=== PATIENT | male | born 1980 | race Caucasian/White ===

== ENCOUNTER 2016-08-03 08:58 | Emergency (ER) | payer BC ==
--- NOTE | 2016-08-03 09:54 | UC ---
Lower Extremity/Ankle HPI - HPI Summary HPI Summary: PAIN LEFT BIG TOE X 2 DAYS THE TOE IS RED, SWOLLEN AND VERY PAINFUL NO KNOWN INJURY HAS BEEN EATING ONE CAN OF TUNA DAILY FOR THE PAST FEW WEEKS - History of Current Complaint Chief Complaint: UCLowerExtremity Stated Complaint: POSSIBLE GOUT Time Seen by Provider: 08/03/16 09:43 Hx Obtained From: Patient Onset/Duration: Gradual Onset, Lasting Days - 2, Still Present Severity Initially: Severe Severity Currently: Severe Aggravating Factor(s): Standing, Ambulation Alleviating Factor(s): Rest, Elevation, Ice Able to Bear Weight: Yes - Risk Factors Gout Risk Factors: Male - Allergies/Home Medications Allergies/Adverse Reactions: Allergies Allergy/AdvReac Type Severity Reaction Status Date / Time No Known Allergies Allergy Verified 08/03/16 09:41 PMH/Surg Hx/FS Hx/Imm Hx Endocrine History Of: Denies: Diabetes, Thyroid Disease Cardiovascular History Of: Denies: Cardiac Disorders, Hypertension Respiratory History Of: Denies: COPD, Asthma GI/ History Of: Denies: Ulcer - Surgical History Surgical History: Yes Surgery Procedure, Year, and Place: 2011: compound fracture of Left leg- surgury to repair. - Family History Known Family History: Positive: None Negative: Diabetes - Social History Alcohol Use: Occasionally Substance Use Type: None Smoking Status (MU): Never Smoked Tobacco Type: Smokeless Tobacco Amount Used/How Often: 1 can per day Length of Time of Smoking/Using Tobacco: 16 yrs Review of Systems Constitutional: Negative Skin: Negative Eyes: Negative ENT: Negative Respiratory: Negative Cardiovascular: Negative All Other Systems Reviewed And Are Negative: Yes Physical Exam Triage Information Reviewed: Yes Appearance: Well-Appearing, No Pain Distress, Well-Nourished Vital Signs: Initial Vital Signs Temp 99.2 F 08/03/16 09:38 Pulse 90 08/03/16 09:38 Resp 16 08/03/16 09:38 BP 111/74 08/03/16 09:38 Pulse Ox 100 08/03/16 09:38 Vital Signs Reviewed: Yes Eyes: Positive: Conjunctiva Clear ENT: Positive: Normal ENT inspection, Hearing grossly normal, Pharynx normal Neck: Positive: Supple, Nontender, No Lymphadenopathy Respiratory: Positive: Chest non-tender, Lungs clear, Normal breath sounds Cardiovascular: Positive: RRR, No Murmur, Pulses Normal Musculoskeletal: Positive: Other: - LEFT GREAT TOE: MP JOINT : + SWELLING, ERYTHEMA , TENDERNESS Lower Extremity Course/Dx - Differential Dx/Diagnosis Provider Diagnoses: GOUT Discharge - Discharge Plan Condition: Stable Disposition: HOME Prescriptions: Indomethacin CAP* [Indocin CAP*] 50 mg PO TID PRN #15 cap PRN Reason: Pain Patient Education Materials: Gout (ED) Referrals: [facility] [Outside] No Primary Care Phys,NOPCP [Primary Care Provider] - Additional Instructions: FOLLOW UP WITH YOUR PCP IN 7 DAYS
[2016-08-03 09:58] VITALS: BP 111/74
== END 2016-08-03 10:03 | disposition home or self-care (01) ==
LOC: UCCORT 08:58
DX: M10.9 Gout, unspecified (principal); F17.290 Nicotine dependence, other tobacco product, uncomplicated
CPT/HCPCS: 99212; G0463

== ENCOUNTER 2017-11-13 09:07 | Emergency (ER) | payer BC ==
[2017-11-13 09:35] VITALS: BP 140/89
--- NOTE | 2017-11-13 10:15 | UC ---
Respiratory Complaint HPI - HPI Summary HPI Summary: Cough with postnasal drip, recently diagnosed with bronchitis and is concerned he has bronchitis. Patient does report that he gets sinus allergies every year and hasn't started taking his Rosalba - History of Current Complaint Chief Complaint: UCRespiratory Stated Complaint: COUGH Time Seen by Provider: 11/13/17 10:07 Hx Obtained From: Patient Onset/Duration: Sudden Onset, Lasting Days Timing: Constant Severity Initially: Mild Severity Currently: Mild Pain Intensity: 4 Pain Scale Used: 0-10 Numeric Character: Cough: Nonproductive Aggravating Factors: Nothing Alleviating Factors: Nothing Associated Signs And Symptoms: Positive: Pleuritic Chest Pain, URI - Allergies/Home Medications Allergies/Adverse Reactions: Allergies Allergy/AdvReac Type Severity Reaction Status Date / Time No Known Allergies Allergy Verified 11/13/17 09:35 PMH/Surg Hx/FS Hx/Imm Hx Previously Healthy: Yes - Surgical History Surgical History: Yes Surgery Procedure, Year, and Place: 2011: compound fracture of Left leg- surgury to repair. - Family History Known Family History: Positive: None Negative: Diabetes - Social History Occupation: Employed Full-time Lives: With Family Alcohol Use: Occasionally Substance Use Type: None Smoking Status (MU): Heavy Every Day Tobacco Smoker Type: Smokeless Tobacco Amount Used/How Often: 1 can per day Length of Time of Smoking/Using Tobacco: since age 15 Review of Systems Constitutional: Negative Skin: Negative Eyes: Negative ENT: Nasal Discharge, Sinus Congestion Respiratory: Cough Cardiovascular: Negative Gastrointestinal: Negative Genitourinary: Negative Motor: Negative Neurovascular: Negative Musculoskeletal: Negative Neurological: Negative Psychological: Negative Is Patient Immunocompromised?: No All Other Systems Reviewed And Are Negative: Yes Physical Exam Triage Information Reviewed: Yes Appearance: Well-Appearing, No Pain Distress, Well-Nourished Vital Signs: Initial Vital Signs Temp 98.4 F 11/13/17 09:29 Pulse 76 11/13/17 09:29 Resp 14 11/13/17 09:29 BP 140/89 11/13/17 09:29 Pulse Ox 100 11/13/17 09:29 Vital Signs Reviewed: Yes Eye Exam: Normal Eyes: Positive: Conjunctiva Clear ENT Exam: Normal ENT: Positive: Normal ENT inspection, Hearing grossly normal, Pharynx normal, Nasal congestion, Nasal drainage, TMs normal. Negative: Tonsillar swelling, Tonsillar exudate, Trismus, Muffled voice, Hoarse voice, Dental tenderness, Sinus tenderness Dental Exam: Normal Neck exam: Normal Neck: Positive: Supple, Nontender Respiratory Exam: Normal Respiratory: Positive: Chest non-tender, Lungs clear, Normal breath sounds, No respiratory distress, No accessory muscle use Cardiovascular Exam: Normal Cardiovascular: Positive: RRR, No Murmur, Pulses Normal, Brisk Capillary Refill Musculoskeletal Exam: Normal Musculoskeletal: Positive: Strength Intact, ROM Intact, No Edema Neurological Exam: Normal Neurological: Positive: Alert, Muscle Tone Normal Psychological Exam: Normal Skin Exam: Normal UC Diagnostic Evaluation - Laboratory O2 Sat by Pulse Oximetry: 100 Respiratory Course/Dx - Course Course Of Treatment: Flonase nasal spray, albuterol, begin Rosalba if no symptom relief in 5-7 days or worsens at any time name and an antibiotic. Increase fluids follow with PCP - Differential Dx/Diagnosis Provider Diagnoses: allergic rhinosinusitis, bronchitis Discharge - Sign-Out/Discharge Documenting (check all that apply): Discharge/Admit/Transfer - Discharge Plan Condition: Stable Disposition: HOME Prescriptions: Albuterol HFA INHALER* [Ventolin HFA Inhaler*] 2 puff INH Q4H PRN #1 mdi PRN Reason: cough Fluticasone NASAL SPRAY 50MCG* [Flonase NASAL SPRAY 50MCG*] 2 spray BOTH NARES DAILY #1 btl guaiFENesin/CODIEN 100MG-10MG* [Robitussin AC 100Mg-10Mg*] 10 ml PO Q4H PRN # 120 udc MDD 40ml PRN Reason: Cough Patient Education Materials: Rhinosinusitis (ED), Hypertension (ED), Acute Cough (ED), Postnasal Drip (DC) Referrals: Sierra Lea NP [Primary Care Provider] - 2 Weeks - Billing Disposition and Condition Condition: STABLE Disposition: HOME
== END 2017-11-13 10:27 | disposition home or self-care (01) ==
LOC: UCCORT 09:07
DX: J30.9 Allergic rhinitis, unspecified (principal); J40 Bronchitis, not specified as acute or chronic; F17.220 Nicotine dependence, chewing tobacco, uncomplicated
CPT/HCPCS: 99212; G0463